=== PATIENT | male | born 1995 | race Caucasian/White ===

== ENCOUNTER 2018-02-22 08:33 | Emergency (ER) | payer SELFPAY ==
[2018-02-22 08:34] VITALS: BP 154/96; PULSE 91; RESP 18; TEMP 36.6; O2SAT 98; BMI 40.3
--- NOTE | 2018-02-22 08:48 | ED.VISSUMM ---
- ER Visit Summary Date of Service: 02/22/18 Chief Complaint: Back pain History of Present Illness: The patient is a 22 M with lower left back pain. The patient has back pains on and off. This episode started this morning after twisting. Pain does not radiate. He has no other associated symptoms like weakness, numbness, loss of bowel or bladder, fever, abdominal pain or GI symptoms, or urinary symptoms. Patient has no history of back surgery. No traumas. Physical Examination: Afebrile and vital signs unremarkable. Alert and oriented. Appears uncomfortable. Abdomen soft and nontender. Back is tender to palpation of the lower left lumbar region. No spinal tenderness. Straight leg raise negative. Strength, sensation, pulses intact distally. Skin appears normal. Test Results: None indicated Emergency Department Course and Treatment: Patient is arranging for transportation. He will be treated with Toradol and Norflex. No indication for imaging or diagnostic testing. Patient will be discharged with a course of naproxen and Flexeril. Follow-up with primary care. Treatment Plan: As above Disposition: Discharged Impression: 1. Acute on chronic lumbar back pain This note was generated with [employer] software. It may contain incorrect words, spelling, and punctuation that were not noted in review of the chart prior to signing ED Disposition - Plan for ED Patient: Chief Complaint: Back Referrals: Davidson Perez MD [Primary Care Provider] -
--- NOTE | 2018-02-22 09:21 | ED.DEP ---
ED Disposition - Plan for ED Patient: Chief Complaint: Back Instructions: ED Spasm Back No Trauma Prescriptions: Naproxen [Naprosyn] 500 mg PO BID #14 tab Cyclobenzaprine [Flexeril] 10 mg PO TID PRN #20 tab PRN Reason: Muscle Spasm Referrals: Davidson Perez MD [Primary Care Provider] -
== END 2018-02-22 09:39 | disposition home or self-care (01) ==
PROVIDERS: Emergency Provider Emergency Medicine; Family Provider Family Medicine; PCP Family Medicine
DX: M54.5 Low back pain (principal); G89.29 Other chronic pain; J45.909 Unspecified asthma, uncomplicated; F17.220 Nicotine dependence, chewing tobacco, uncomplicated
CPT/HCPCS: 99282

== ENCOUNTER 2019-05-19 08:55 | Emergency (ER) | payer BC, SELFPAY ==
[2019-05-19 08:57] VITALS: BP 155/93; PULSE 95; RESP 16; TEMP 37; O2SAT 97; BMI 43.0
[2019-05-19 09:06] VITALS: BP 155/93; PULSE 95; RESP 16; TEMP 37; O2SAT 97
--- NOTE | 2019-05-19 09:12 | ED.VISSUMM ---
- ER Visit Summary Date of Service: 05/19/19 Chief Complaint: Cough and shortness of breath History of Present Illness: The patient is a 23 M history of asthma. Patient states the last 2 days his cough clear phlegm with some shortness of breath. He has asthma and states his been using his inhaler more. He has had some wheezing. Denies any fever or chills. No chest pain. No hemoptysis. No recent travel, surgery or immobilization. No leg pain or swelling. Physical Examination: Well-appearing young male. Vital signs are stable. He is afebrile. He does not look septic or toxic he is no distress. Pulse ox 97% on room air no signs of hypoxia. H EENT exam unremarkable. Neck nontender no lymphadenopathy. No JVD. Lungs prolonged expiratory phase but no rales or rhonchi. Equal symmetrical. Currently no wheezing. Heart regular rate and rhythm no murmur. Abdomen soft nontender normal bowel sounds no peritoneal signs. Moving all 4 extremities. Left arm is in a sling due to rotator cuff tendinitis. Calves are nontender without edema. Back nontender. Neurologically is awake alert no focal motor deficits. Test Results: None Emergency Department Course and Treatment: Patient with a viral URI with exacerbation of asthma. Started on prednisone. Already has an inhaler at home. Does not need a chest x-ray or antibiotics. Treatment Plan: Prednisone 40 g a day for up to 1 week. Uses inhaler. Follow-up if not improving. Return if worse. Disposition: Discharge Impression: Acute viral URI with exacerbation of asthma This note was generated with [employer] dictation software. It may contain incorrect words, spelling, and punctuation that were not noted in review of the chart prior to signing ED Disposition - Plan for ED Patient: Referrals: Davidson Perez MD [Primary Care Provider] -
--- NOTE | 2019-05-19 09:15 | ED.DEP ---
ED Disposition - Plan for ED Patient: Disposition: Home or Assisted Living Instructions: BRONCHITIS with Wheezing (Adult), ASTHMA, Acute (Adult) Prescriptions: Prednisone [Deltasone] 40 mg PO DAILY #7 tab Prescription Printed Referrals: Davidson Perez MD [Primary Care Provider] - 1 Week if not improving Additional Instructions: Prednisone 40 mg a day for up to 1 week. May stop if you are feeling better. Usual inhaler as needed. Follow-up if not improving or return if feeling a lot worse.
[2019-05-19] MEDS: predniSONE 20 MG Tablet 60 MG PO (09:33)
== END 2019-05-19 09:35 | disposition home or self-care (01) ==
LOC: ED 09:25
PROVIDERS: Emergency Provider Emergency Medicine; Family Provider Family Medicine; PCP Family Medicine
DX: J06.9 Acute upper respiratory infection, unspecified (principal); J45.901 Unspecified asthma with (acute) exacerbation; M75.102 Unspecified rotator cuff tear or rupture of left shoulder, not specified as traumatic
CPT/HCPCS: 99283